=== PATIENT | male | born 1955 | race African-American/Black ===

== ENCOUNTER 2016-06-10 10:18 | Emergency (ER) | payer SELFPAY ==
[~2016-06-10] VITALS: Ht 188 cm; Wt 70.0 kg
[~2016-06-10 10:18] MED LIST: Z.0.NO CURRENT MEDS
[2016-06-10 10:25] VITALS: BP 141/81; PULSE 85; RESP 17; TEMP 98.4; O2SAT 95
[2016-06-10] MEDS ORDERED: SODIUM CHLORIDE 0.9% FLUSH 10 ML FLUSH IVF PRN (11:15)
--- NOTE | 2016-06-10 11:23 | PD ---
HPI Chief Complaint: Chest Pain Time Seen by Provider: 10:40 Travel History International Travel<30 days: No Contact w/Intl Traveler<30days: No Traveled to known affect area: No History of Present Illness HPI This patient complains of chest pain. He has a sharp stabbing pleuritic pain in both right and left upper chest. Reproducible with a deep breath. He also complains of some dyspnea on exertion. No productive cough or fever. He has no cardiac disease. He is a smoker. Symptoms severity is moderate. Duration 3 days. No alleviating factors. PFSH Past Medical History Diminished Hearing: No Respiratory: Yes (PT STATES "A SPOT ON LUNG WAS SEEN WHILE INCARCERATED"-NOT FOLLOWED UP) ?: Not Social History Alcohol Use: No Tobacco Use: Yes (one pack per day) Substance Use: No Allergies-Medications (Allergen,Severity, Reaction): Coded Allergies: No Known Allergies (Verified , 06/10/16) Reported Meds & Prescriptions Reported Meds & Active Scripts Active No Active Prescriptions or Reported Medications Review of Systems General / Constitutional: No: Fever Eyes: No: Visual changes HENT: No: Headaches Cardiovascular: Positive: Chest Pain or Discomfort Respiratory: Positive: Shortness of Breath Gastrointestinal: No: Abdominal Pain Genitourinary: No: Dysuria Musculoskeletal: No: Pain Skin: No Rash Neurologic: No: Weakness Psychiatric: No: Depression Endocrine: No: Polydipsia Hematologic/Lymphatic: No: Easy Bruising Physical Exam Narrative GENERAL: Well-nourished, well-developed patient with pleuritic pain. SKIN: Warm and dry. HEAD: Atraumatic. Normocephalic. EYES: Pupils equal and round. No scleral icterus. No injection or drainage. ENT: No nasal bleeding or discharge. Mucous membranes pink and moist. NECK: Trachea midline. No JVD. CARDIOVASCULAR: Regular rate and rhythm. No murmur appreciated. RESPIRATORY: No accessory muscle use. Clear to auscultation. Breath sounds equal bilaterally. GASTROINTESTINAL: Abdomen soft, non-tender, nondistended. Hepatic and splenic margins not palpable. MUSCULOSKELETAL: No obvious deformities. No clubbing. No cyanosis. No edema. Has some reproduce or chest tenderness diffusely NEUROLOGICAL: Awake and alert. No obvious cranial nerve deficits. Motor grossly within normal limits. Normal speech. PSYCHIATRIC: Appropriate mood and affect; insight and judgment normal. Data Data Last Documented VS Vital Signs Date Time Temp Pulse Resp B/P Pulse Ox O2 Delivery O2 Flow Rate FiO2 06/10/16 13:23 66 18 139/65 100 06/10/16 12:15 Room Air 06/10/16 10:25 98.4 Orders Electrocardiogram (06/10/16 ) Complete Blood Count With Diff (06/10/16 11:06) Basic Metabolic Panel (Bmp) (06/10/16 11:06) D-Dimer (06/10/16 11:06) Act Partial Throm Time (Ptt) (06/10/16 11:06) Prothrombin Time / Inr (Pt) (06/10/16 11:06) Iv Access Insert/Monitor (06/10/16 11:06) Ecg Monitoring (06/10/16 11:06) Oximetry (06/10/16 11:06) Chest, Single Ap (06/10/16 11:06) Sodium Chloride 0.9% Flush (Ns Flush) (06/10/16 11:15) Labs Laboratory Tests Test 06/10/16 10:30 White Blood Count 5.0 TH/MM3 Red Blood Count 5.50 MIL/MM3 Hemoglobin 14.1 GM/DL Hematocrit 44.1 % Mean Corpuscular Volume 80.1 FL Mean Corpuscular Hemoglobin 25.6 PG Mean Corpuscular Hemoglobin 32.0 % Concent Red Cell Distribution Width 16.2 % Platelet Count 177 TH/MM3 Mean Platelet Volume 9.9 FL Neutrophils (%) (Auto) 74.7 % Lymphocytes (%) (Auto) 13.1 % Monocytes (%) (Auto) 9.7 % Eosinophils (%) (Auto) 1.6 % Basophils (%) (Auto) 0.9 % Neutrophils # (Auto) 3.7 TH/MM3 Lymphocytes # (Auto) 0.7 TH/MM3 Monocytes # (Auto) 0.5 TH/MM3 Eosinophils # (Auto) 0.1 TH/MM3 Basophils # (Auto) 0.0 TH/MM3 CBC Comment DIFF FINAL Differential Comment Prothrombin Time 11.4 SEC Prothromb Time International 1.0 RATIO Ratio Activated Partial 28.5 SEC Thromboplast Time D-Dimer Quantitative (PE/DVT) 0.29 MG/L FEU Sodium Level 140 MEQ/L Potassium Level 3.8 MEQ/L Chloride Level 101 MEQ/L Carbon Dioxide Level 26.6 MEQ/L Anion Gap 12 MEQ/L Blood Urea Nitrogen 10 MG/DL Creatinine 0.98 MG/DL Estimat Glomerular Filtration 95 ML/MIN Rate Random Glucose 57 MG/DL Calcium Level 8.6 MG/DL [facility] Medical Decision Making Medical Screen Exam Complete: Yes Emergency Medical Condition: Yes Medical Record Reviewed: Yes Differential Diagnosis Differential diagnosis includes FL, angina, pericarditis, pleurisy, GERD, PE Narrative Course I have reviewed the patient's electronic medical record. Patient was seen here last in 2010 and had a negative treadmill test in the chest pain center Patient's presentation is concerning for PE or pleurisy IV placed CBC is normal Metabolic profile is normal Coagulation studies are normal D-dimer is 0.29, ruling out PE in this low risk patient I reviewed his chest x-ray which shows some COPD-like changes with some atelectasis/chronic scar tissue like findings. I reviewed his EKG which shows sinus rhythm but no ST elevation Extended cardiac monitoring reveals sinus rhythm without ectopy On recheck he is doing well. He is a lifelong smoker and likely has some degree of COPD I prescribed him an albuterol inhaler to use as needed but he should get a primary care physician and work on cigarette cessation Diagnosis Primary Impression: Pleuritic chest pain Additional Instructions: The patient was advised to follow up with their physician and return if they worsen. Stop smoking Med/Other Pt SpecificInfo: Prescription(s) given Scripts No Active Prescriptions or Reported Meds Disposition: 01 DISCHARGE HOME Condition: Stable Kimani Acuña MD Jun 10, 2016 11:23
[2016-06-10 11:34] LABS: AUTOMATED NEUTROPHIL # 3.7 TH/MM3 (1.8-7.7); BASOPHIL % 0.9 % (0.0-2.0); EOSINOPHIL # 0.1 TH/MM3 (0-0.4); EOSINOPHIL % 1.6 % (0.0-4.0); HEMATOCRIT 44.1 % (39.0-51.0); HEMO FLAGS DIFF FINAL; LYMPH % 13.1 % (9.0-44.0); LYMPHOCYTE # 0.7 TH/MM3 (1.0-4.8); MEAN CELL VOLUME 80.1 FL (80.0-100.0); MEAN CORPUSCULAR HEMOGLOBIN 25.6 PG (27.0-34.0); MONO % 9.7 % (0.0-8.0); NEUT % 74.7 % (16.0-70.0); PLATELET COUNT 177 TH/MM3 (150-450); RED CELL DISTRIBUTION WIDTH 16.2 % (11.6-17.2)
[2016-06-10 11:43] LABS: APTT (PATIENT) 28.5 SEC (24.3-30.1); PROTHROMBIN TIME - PATIENT 11.4 SEC (9.8-11.6)
[2016-06-10 11:50] LABS: BICARBONATE 26.6 MEQ/L (21.0-32.0); POTASSIUM 3.8 MEQ/L (3.5-5.1)
[2016-06-10 12:15] VITALS: BP 141/81; PULSE 75; PULSE 88; RESP 16; RESP 18; O2SAT 100
--- NOTE | 2016-06-10 12:16 | RADRPT ---
EXAM DATE/TIME: 06/10/2016 11:23 [facility] COMPARISON: No previous studies available for comparison. INDICATIONS : Chest Pain. MEDICAL HISTORY : None. SURGICAL HISTORY : None. ENCOUNTER: Initial ACUITY: 3 days PAIN SCORE: 3/10 LOCATION: Left chest FINDINGS: A single view of the chest demonstrates a bilateral pleural-based calcifications laterally in the mid chest. Subjacent pleural-parenchymal scarring and airspace disease. Lungs are hyperinflated with fla ttening of the hemidiaphragms. Heart size is normal. Osseous structures are intact. CONCLUSION: 1. Hyperinflation with flattening of both hemidiaphragms characteristic of some degree of COPD. 2. Chronic appearing pleural calcifications laterally in the mid chest bilaterally with subjacent sca rring/airspace disease. Juan Jc MD on June 10, 2016 at 12:12 Board Certified Radiologist. This report was verified electronically.
[2016-06-10 13:23] VITALS: BP 139/65
[2016-06-10] MEDS ORDERED: VENTAER INH (13:36)
--- NOTE | 2016-06-11 16:48 | EKG ---
Date Performed: 06/10/2016 Time Performed: 10:31:40 PTAGE: 61 years EKG: Sinus rhythm SEPTAL MYOCARDIAL INFARCTION ABNORMAL ECG Compared to prior tracing no significant change PREVIOUS TRACING : 07/11/2010 12.36 DOCTOR: Ren Sebastian Interpretating Date/Time 06/11/2016 16:46:36
== END 2016-06-10 14:14 | disposition home or self-care (01) ==
LOC: NEPE 10:18
DX: R07.81 Pleurodynia (principal); F17.210 Nicotine dependence, cigarettes, uncomplicated
CPT/HCPCS: 71010; 80048; 85025; 85379; 85610; 85730; 93005

== ENCOUNTER 2017-06-06 12:20 | Emergency (ER) | payer SELFPAY ==
[~2017-06-06 12:20] MED LIST changes: +VENTAER INH; -Z.0.NO CURRENT MEDS
[2017-06-06 13:10] VITALS: BP 127/72; PULSE 93; RESP 18; TEMP 97.8; O2SAT 97
--- NOTE | 2017-06-06 14:08 | RADRPT ---
EXAM DATE/TIME: 06/06/2017 13:55 [facility] COMPARISON: CHEST SINGLE AP, June 10, 2016, 11:23. INDICATIONS : Cough and shortness of breath. MEDICAL HISTORY : None. SURGICAL HISTORY : None. ENCOUNTER: Initial ACUITY: 1 week PAIN SCORE: 8/10 LOCATION: Bilateral chest FINDINGS: PA and lateral views of the chest were obtained and again demonstrate hyperinflation and chronic scar ring with bullous change in both lungs. There are patchy areas of opacity again noted in the mid lung s left greater than right with calcified pleural plaques again noted. No definite acute infiltrate or effusion is present. The heart size remains within normal limits. The bony thorax is intact. CONCLUSION: 1. Underlying emphysema and chronic scarring with bullous change. 2. Abnormal areas of opacity are again noted in both mid lungs with adjacent calcified pleural plaque s. This is not significantly change. 3. No definite acute infiltrate is identified. Enoc Boudreaux MD on June 06, 2017 at 14:03 Board Certified Radiologist. This report was verified electronically.
[2017-06-06 14:53] LABS: AUTOMATED NEUTROPHIL # 4.6 TH/MM3 (1.8-7.7); BASOPHIL # 0.1 TH/MM3 (0-0.2); EOSINOPHIL # 0.1 TH/MM3 (0-0.4); HEMATOCRIT 46.6 % (39.0-51.0); LYMPH % 19.7 % (9.0-44.0); LYMPHOCYTE # 1.4 TH/MM3 (1.0-4.8); MEAN CELL VOLUME 80.2 FL (80.0-100.0); MEAN CORPUSCULAR HEMOGLOBIN 25.7 PG (27.0-34.0); MEAN CORPUSCULAR HGB CONC 32.1 % (32.0-36.0); MONO % 12.8 % (0.0-8.0); MONOCYTE # 0.9 TH/MM3 (0-0.9); NEUT % 65.5 % (16.0-70.0); PLATELET COUNT 244 TH/MM3 (150-450); RED BLOOD COUNT 5.82 MIL/MM3 (4.50-5.90); RED CELL DISTRIBUTION WIDTH 15.3 % (11.6-17.2); WHITE BLOOD COUNT 7.1 TH/MM3 (4.0-11.0)
[2017-06-06 15:05] LABS: ALBUMIN 3.6 GM/DL (3.4-5.0); ALT (GPT) 19 U/L (12-78); AST (GOT) 21 U/L (15-37); BICARBONATE 32.3 MEQ/L (21.0-32.0); BLOOD UREA NITROGEN 11 MG/DL (7-18); CALCIUM 8.7 MG/DL (8.5-10.1); CHLORIDE 104 MEQ/L (98-107); CREATININE 1.14 MG/DL (0.60-1.30); GLOMERULAR FILTRATION RATE 79 ML/MIN (>89); GLUCOSE,RANDOM 128 MG/DL (74-106); SODIUM (NA) 141 MEQ/L (136-145)
[2017-06-06 15:08] LABS: ALKALINE PHOSPHATASE 66 U/L (45-117); TOTAL BILIRUBIN ADULT 0.6 MG/DL (0.2-1.0); TOTAL PROTEIN 7.7 GM/DL (6.4-8.2)
--- NOTE | 2017-06-06 15:18 | PD ---
HPI Chief Complaint: Cold / Flu Symptoms Time Seen by Provider: 15:15 Travel History International Travel<30 days: No Contact w/Intl Traveler<30days: No Traveled to known affect area: No History of Present Illness HPI 62-year-old male presents to the emergency department with complaint of productive cough, chest congestion, shortness of breath 1 week. Reports subjective fever and chills. Says his fever and chills are mostly at night. Reports body aches. Denies hemoptysis. Reports tobacco use. Denies wheezing. Denies chest pain. Denies history of DVT/PE. Denies recent surgery or travel. Has tried taking NyQuil for symptom management. Symptoms are mild to moderate in severity. No known aggravating or relieving factors. No primary care provider. Denies significant past medical history. No known allergies. Has no other medical complaints. No other modifying factors or associated signs and symptoms. PFSH Past Medical History Diminished Hearing: No Respiratory: Yes (PT STATES "A SPOT ON LUNG WAS SEEN WHILE INCARCERATED"-NOT FOLLOWED UP) Social History Alcohol Use: No Tobacco Use: Yes (one pack per day) Substance Use: No Allergies-Medications (Allergen,Severity, Reaction): Coded Allergies: No Known Allergies (Verified , 06/10/16) Reported Meds & Prescriptions Reported Meds & Active Scripts Active Azithromycin 500 Mg Tab 500 Mg PO DAILY Deltasone (Prednisone) 20 Mg Tab 40 Mg PO DAILY 4 Days start 06/07/2017 Ventolin Hfa 18 GM Inh (Albuterol Sulfate) 90 Mcg/Act Aer 2 Puff INH Q4-6H PRN Tessalon Perles (Benzonatate) 100 Mg Cap 100 Mg PO TID PRN 3 Days Ventolin Hfa 18 GM Inh (Albuterol Sulfate) 90 Mcg/Act Aer 2 Puff INH Q4-6H PRN Review of Systems Except as stated in HPI: all other systems reviewed are Neg Physical Exam Narrative GENERAL: Well-nourished, well-developed black male patient, in no acute distress ; afebrile, nontoxic-appearing SKIN: Warm and dry. No rash. HEAD: Atraumatic. Normocephalic. EYES: Pupils equal and round. No scleral icterus. No injection or drainage. ENT: Mucosa pink and moist. No erythema or exudates. No uvular edema. No uvular , palatal, or tonsillar deviation. Airway patent. EARS: Bilateral pinnae and external canals appear within normal limits. Bilateral tympanic membranes without erythema, dullness or perforation. NECK: Trachea midline. No lymphadenopathy. CARDIOVASCULAR: Regular rate and rhythm. No murmur appreciated. RESPIRATORY: No accessory muscle use. Clear to auscultation and decreased in bilateral bases. Breath sounds equal bilaterally. No retractions or tachypnea. GASTROINTESTINAL: Abdomen soft, non-tender, nondistended. Hepatic and splenic margins not palpable. Bowel sounds are active 4 quadrants. MUSCULOSKELETAL: No obvious deformities. No clubbing. No cyanosis. No edema. NEUROLOGICAL: Awake and alert. Oriented 3. No obvious cranial nerve deficits. Motor grossly within normal limits. Normal speech. Moves all extremities. 5/5 strength to all extremities. PSYCHIATRIC: Appropriate mood and affect; insight and judgment normal. Data Data Last Documented VS Vital Signs Date Time Temp Pulse Resp B/P (MAP) Pulse Ox O2 Delivery O2 Flow Rate FiO2 06/06/17 16:28 75 16 98 06/06/17 13:10 97.8 127/72 (90) Orders Orders Complete Blood Count With Diff (06/06/17 13:12) Comprehensive Metabolic Panel (06/06/17 13:12) Chest, Pa & Lat (06/06/17 13:12) Influenzae A/B Antigen (06/06/17 13:12) Prednisone (Deltasone) (06/06/17 15:45) Albuterol Neb (Albuterol Neb) (06/06/17 15:45) Ed Discharge Order (06/06/17 16:25) Labs Laboratory Tests Test 06/06/17 13:23 White Blood Count 7.1 TH/MM3 Red Blood Count 5.82 MIL/MM3 Hemoglobin 15.0 GM/DL Hematocrit 46.6 % Mean Corpuscular Volume 80.2 FL Mean Corpuscular Hemoglobin 25.7 PG Mean Corpuscular Hemoglobin Concent 32.1 % Red Cell Distribution Width 15.3 % Platelet Count 244 TH/MM3 Mean Platelet Volume 10.0 FL Neutrophils (%) (Auto) 65.5 % Lymphocytes (%) (Auto) 19.7 % Monocytes (%) (Auto) 12.8 % Eosinophils (%) (Auto) 1.0 % Basophils (%) (Auto) 1.0 % Neutrophils # (Auto) 4.6 TH/MM3 Lymphocytes # (Auto) 1.4 TH/MM3 Monocytes # (Auto) 0.9 TH/MM3 Eosinophils # (Auto) 0.1 TH/MM3 Basophils # (Auto) 0.1 TH/MM3 CBC Comment DIFF FINAL Differential Comment Blood Urea Nitrogen 11 MG/DL Creatinine 1.14 MG/DL Random Glucose 128 MG/DL Total Protein 7.7 GM/DL Albumin 3.6 GM/DL Calcium Level 8.7 MG/DL Alkaline Phosphatase 66 U/L Aspartate Amino Transf (AST/SGOT) 21 U/L Alanine Aminotransferase (ALT/SGPT) 19 U/L Total Bilirubin 0.6 MG/DL Sodium Level 141 MEQ/L Potassium Level 3.8 MEQ/L Chloride Level 104 MEQ/L Carbon Dioxide Level 32.3 MEQ/L Anion Gap 5 MEQ/L Estimat Glomerular Filtration Rate 79 ML/MIN [facility] Medical Decision Making Medical Screen Exam Complete: Yes Emergency Medical Condition: Yes Medical Record Reviewed: Yes Differential Diagnosis Bronchitis, COPD, influenza, pneumonia Narrative Course 62-year-old male with cold/flu symptoms. CBC, CMP, influenza, chest x-ray ordered in triage. 1516: CBC, CMP unremarkable. Influenza negative. Chest x-ray concluded: Underlying emphysema and chronic scarring with bullous change; 2. Abnormal areas of opacity are again noted in both mid lungs with adjacent calcified pleural plaques. This is not significantly change; 3. No definite acute infiltrate is identified. Discussed chest x-ray findings with the patient. Instructed patient to follow-up with overnight houseperson in regards to underlying emphysema. Lungs are clear and equal throughout with decreased breath sounds in bilateral bases. Albuterol nebulized and prednisone ordered. After nebulizer treatment the patient reports improvement in symptoms. She denies chest tightness or shortness of breath. Lungs are clear and equal throughout with improved lung sounds in bilateral bases. Azithromycin, prednisone, Ventolin inhaler, Tessalon Perles prescribed for home. Instructed patient to follow-up with overnight houseperson. Instructed patient to follow up with primary care provider. Patient verbalizes understanding and agreement with treatment plan. Patient is medically cleared and stable for discharge. Discussed reasons to return to the emergency department. Patient agrees with treatment plan. The patients vital signs are stable and the patient is stable for outpatient follow-up and treatment. Patient discharged home, stable and in no acute distress. Diagnosis Primary Impression: Acute bronchitis Qualified Codes: J20.9 - Acute bronchitis, unspecified Referrals: [facility] Primary Care Physician Autobody Technician Patient Instructions: Acute Bronchitis (ED), General Instructions Departure Forms: Tests/Procedures, Work Release Enter return to work date: Jun 08, 2017 Additional Instructions: Use Albuterol inhaler as prescribed Take oral steroids as prescribed and complete full course Use Tessalon Perles as prescribed to decrease coughing spasms Ezke-[id number] decongestants or antihistamines as directed and as needed for symptom management Your cough can last 4-6 weeks Drink plenty of fluids to prevent dehydration Use hot air humidifier to decrease cough exacerbation Turn off ceiling fans and sleep with head of bed elevated Avoid triggers such as second hand smoke, dust, known allergens Follow-up with your primary care provider Return to the emergency department immediately with worsening of symptoms Med/Other Pt SpecificInfo: Prescription(s) given Scripts Azithromycin (Azithromycin) 500 Mg Tab 500 MG PO DAILY for Infection, #5 TAB 0 Refills Prov: Earlene Levin 06/06/17 Prednisone (Deltasone) 20 Mg Tab 40 MG PO DAILY for 4 Days, #8 TAB 0 Refills start 06/07/2017 Prov: Earlene Levin 06/06/17 Albuterol 18 GM Inh (Ventolin Hfa 18 GM Inh) 90 Mcg/Act Aer 2 PUFF INH Q4-6H Y for SOB/WHEEZING, #1 INHALER 0 Refills Prov: Earlene Levin 06/06/17 Benzonatate (Tessalon Perles) 100 Mg Cap 100 MG PO TID Y for COUGH for 3 Days, CAP 0 Refills Prov: Earlene Levin 06/06/17 Disposition: 01 DISCHARGE HOME Condition: Stable Earlene Levin Jun 06, 2017 15:18
[2017-06-06] MEDS ORDERED: predniSONE 20 MG TAB PO ONE (15:45)
[2017-06-06] MEDS ORDERED: RESP: ALBUTEROL 2.5 MG/3 ML NEB (SCH) INH ONE (15:45)
[2017-06-06] MEDS ORDERED: VENTAER INH (16:22)
[2017-06-06] MEDS ORDERED: BENZ100 PO (16:22)
[2017-06-06] MEDS ORDERED: PRED-503 PO (16:22)
[2017-06-06] MEDS ORDERED: AZIT500T2 PO (16:25)
== END 2017-06-06 16:40 | disposition home or self-care (01) ==
LOC: NED 12:20 → NEPD 16:40
DX: J20.9 Acute bronchitis, unspecified (principal); F17.200 Nicotine dependence, unspecified, uncomplicated
CPT/HCPCS: 71046; 80053; 85025; 87804; 94664; 99284; J7512; J7613

== ENCOUNTER 2017-09-26 06:45 | Observation (INO) ==
--- NOTE | 2017-09-26 07:23 | ED ---
HPI General Chief complaint: Chest Pain Stated complaint: chest pain/diff breathing Time Seen by Provider: 09/26/17 07:08 History of Present Illness HPI narrative: Patient is a 62-year-old male presents emergency department for evaluation of chest pain sharp in the middle of his chest sometimes under his left nipple. Patient is a cigarette smoker, denies a history of high blood pressure high cholesterol or diabetes, no history of heart disease lung disease and himself. States he has not had a checkup in many years however. On review of systems the patient states he does have some shortness of breath no nausea no vomiting no dizziness, he states the pain does get worse with exertion. Never had pain like this in the past. It is not associated with any food intake. This episode started last night about 1999 Onset (ago): hour(s) Location: chest Radiation: non-radiation Severity scale (1-10): 9 Quality: sharp Related Data Home Medications Medication Instructions Recorded Confirmed No Known Home Medications 09/26/17 09/26/17 Allergies Allergy/AdvReac Type Severity Reaction Status Date / Time No Known Allergies Allergy Verified 09/26/17 06:51 Review of Systems Except as stated in HPI: all other systems reviewed are negative PMFSH Medical History Medical History Patient denies medical problems (Acute) Social History Social History Substance History: Past History Smoking Status: Heavy tobacco smoker Tobacco Type: Cigarettes How Often Do You Have a Drink Containing Alcohol: 2 to 3 times a week Recent Travel in [facility] within the Last 8 Weeks: No Recent Out of Country Travel within the Last 8 Weeks: No Substance Abuse Detail Marijuana: Substance Use Status: Sustained Remission Immunization History Tetanus Immunization: Never Vaccinated Hx Influenza Vaccine This Season: No Course Initial Documented Vital Signs Temperature 98.3 F 09/26/17 06:47 Pulse Rate 92 H 09/26/17 06:47 Respiratory Rate 24 09/26/17 06:47 Blood Pressure 137/78 09/26/17 06:47 Pulse Oximetry 93 L 09/26/17 06:47 Last Documented Vital Signs Temperature 97.4 F L 09/26/17 14:10 Pulse Rate 80 09/26/17 14:10 Respiratory Rate 16 09/26/17 14:10 Blood Pressure 119/71 09/26/17 14:10 Pulse Oximetry 95 09/26/17 14:10 Medical Decision Making [facility] Narrative Medical decision making narrative: Patient room to the emergency department, chest pain has some fairly atypical signs to it but does have some risk factors including smoking, has not had a checkup in many years. He also does state that the symptoms are worsened with exertion. Review of his records shows that he has been here at least twice in the past for this once in 2010 was admitted chest pain center and then one last year which she was diagnosed with pleuritic chest pain and sent home. Given his symptoms I think he would benefit from a chest pain center observation, discussed the other possibilities with him including reflux, Barajas's esophagus and discussed he needs to follow-up with the [facility] or GI doctor for further workup after he is excluded from cardiac etiology. Otherwise chest x-ray negative, EKG shows no signs of ischemia troponin negative. Aspirin nitroglycerin given, minimal relief of symptoms. Lab Data Result diagrams: 09/26/17 07:05 09/26/17 07:05 Lab Results 09/26/17 09/26/17 09/26/17 Range/Units 07:05 07:05 09:05 WBC 5.1 (4.0-11.0) th/mm3 RBC 5.45 (4.50-5.90) mil/mm3 Hgb 14.1 (13.0-17.0) gm/dL Hct 43.3 (39.0-51.0) % MCV 79.4 L (80.0-100.0) fL MCH 25.8 L (27.0-34.0) pg MCHC 32.5 (32.0-36.0) % RDW 14.4 (11.6-17.2) % Plt Count 190 (150-450) th/mm3 MPV 9.0 (7.0-11.0) fL Neut % (Auto) 54.8 (16.0-70.0) % Lymph % (Auto) 27.2 (9.0-44.0) % [place] % (Auto) 15.6 H (0.0-8.0) % Eos % (Auto) 0.9 (0.0-4.0) % Baso % (Auto) 1.5 (0.0-2.0) % Neut # (Auto) 2.8 (1.8-7.7) th/mm3 Lymph # (Auto) 1.4 (1.0-4.8) th/mm3 [place] # (Auto) 0.8 (0.0-0.9) th/mm3 Eos # (Auto) 0.0 (0.0-0.4) th/mm3 Baso # (Auto) 0.1 (0.0-0.2) th/mm3 WBC Differential . Differential Comment Auto diff final D-Dimer Quant (PE/DVT) 0.50 (0.00-0.50) mg/L FEU Sodium 139 (136-145) meq/L Potassium 4.0 (3.5-5.1) meq/L Chloride 101 (98-107) meq/L Carbon Dioxide 26.4 (21.0-32.0) meq/L Anion Gap 12 (5-15) meq/L BUN 14 (7-18) mg/dL Creatinine 1.06 (0.60-1.30) mg/dL Estimated GFR 86 L (>89) mL/min Random Glucose 76 (74-106) mg/dL Calcium 8.6 (8.5-10.1) mg/dL Total Bilirubin 0.8 (0.2-1.0) mg/dL AST 49 H (15-37) U/L ALT 28 (12-78) U/L Alkaline Phosphatase 72 (45-117) U/L Total Creatine Kinase 200 (39-308) U/L CK-MB (CK-2) 2.6 (0.5-3.6) ng/mL Troponin I Less than 0.02 L (0.02-0.05) ng/mL Total Protein 8.0 (6.4-8.2) g/dL Albumin 3.8 (3.4-5.0) g/dL Lipase 75 (73-393) U/L Imaging Data Radiologist's impression: Chest X-Ray 09/26/17 07:36 CONCLUSION: 1. Marked COPD. 2. Bihilar additional airspace process which appears chronic. Stable pleural plaquing laterally on the left. 3. No acute superimposed infiltrate. Myocardial Perfusion Scan Nuc Med 09/26/17 11:14 CONCLUSION: Negative examination. Discharge Plan Discharge Disposition Patient Disposition: 01 Discharge Home Discharge Condition Condition: Stable Discharge Order Discharge Orders: Discharge Order (Routine); Ordered 09/26/17 Ordered By: Jerald Layne Physicians Team ED Provider: Jarred Shepard Primary Care Provider: Primary Care Saba Montoya Attending Provider: Tristan Daniel Status ED Status: Left Department Discharge Information Discharge Date/Time: 09/26/17 12:45
[2017-09-26 07:57] LABS: Baso # (Auto) 0.1 th/mm3 (0.0-0.2); Baso % (Auto) 1.5 % (0.0-2.0); Eos % (Auto) 0.9 % (0.0-4.0); Hematocrit 43.3 % (39.0-51.0); Hemoglobin 14.1 gm/dL (13.0-17.0); Lymph # (Auto) 1.4 th/mm3 (1.0-4.8); Lymph % (Auto) 27.2 % (9.0-44.0); Mean Corpuscular HGB Conc 32.5 % (32.0-36.0); Mean Corpuscular Hemoglobin 25.8 pg (27.0-34.0); Mean Corpuscular Volume 79.4 fL (80.0-100.0); Mono # (Auto) 0.8 th/mm3 (0.0-0.9); Mono % (Auto) 15.6 % (0.0-8.0); Neut # (Auto) 2.8 th/mm3 (1.8-7.7); Neut % (Auto) 54.8 % (16.0-70.0); Platelet Count 190 th/mm3 (150-450); Red Blood Count 5.45 mil/mm3 (4.50-5.90); Red Cell Distribution Width 14.4 % (11.6-17.2); White Blood Count 5.1 th/mm3 (4.0-11.0)
[2017-09-26 08:19] LABS: Albumin 3.8 g/dL (3.4-5.0); Anion Gap 12 meq/L (5-15); Aspartate Aminotransferase 49 U/L (15-37); Blood Urea Nitrogen 14 mg/dL (7-18); Calcium 8.6 mg/dL (8.5-10.1); Carbon Dioxide 26.4 meq/L (21.0-32.0); Chloride 101 meq/L (98-107); Glomerular Filtration Rate 86 mL/min (>89); Glucose,Random 76 mg/dL (74-106); Lipase 75 U/L (73-393); Sodium 139 meq/L (136-145)
[2017-09-26 08:21] LABS: Alanine Aminotransferase 28 U/L (12-78)
--- NOTE | 2017-09-26 08:21 | XR ---
EXAM DATE: 09/26/2017 7:55 AM EDT AGE/SEX: 62 years / Male INDICATIONS: Chest pain. CLINICAL DATA: This is the patient's initial encounter. Patient reports that signs and symptoms have been present for 2 days and indicates a pain score of 6/10. MEDICAL/SURGICAL HISTORY: . Smoker. None. COMPARISON: [facility], CHEST PA & LAT, 06/06/2017. . FINDINGS: A single AP view of the chest demonstrates hyperinflation findings of significant emphysematous [place]in[place] es, particularly in the apices. Stable bihilar mixed interstitial and airspace process with pleural-b ased calcification laterally on the left. Flattening of the hemidiaphragms characteristic of COPD wit h pleural parenchymal scarring. CONCLUSION: 1. Marked COPD. 2. Bihilar additional airspace process which appears chronic. Stable pleural plaquing laterally on t he left. 3. No acute superimposed infiltrate. Electronically signed by: Juan Jc MD 09/26/2017 8:19 AM EDT
[2017-09-26 08:24] LABS: Alkaline Phosphatase 72 U/L (45-117); Creatine Kinase 200 U/L (39-308)
[2017-09-26 08:37] LABS: Creatine Kinase MB 2.6 ng/mL (0.5-3.6)
[2017-09-26 10:08] VITALS: RESP 16
[2017-09-26] MEDS ORDERED: Acetaminophen 500 MG Tablet PO PRN (10:38)
--- NOTE | 2017-09-26 10:46 | P.HPCA ---
History of Present Illness Primary Care Physician: No Primary Care Physician Chief Complaint: Chest pain History of Present Illness: This is a 62-year-old male history of tobacco abuse and likely COPD although states he was never told he has it but complains of developing a central chest discomfort last evening around 8:00 while lying at home whenever he would take in a deep breath. It would occur would be a sharp pain in last for a few seconds. Would make him short of breath. Found nothing else to bring on this chest discomfort patient states he rides a bicycle to work provides a very slow and it will not usually produce chest pain but states he gets short of breath easily and that has been going on for quite some time. States he has had a stress test in the past and upon reviewing records he had a stress test 2010 that was nonischemic. Currently denies chest discomfort. Denies recent illness. Denies recent travel. Patient has smoked about one third pack of cigarettes daily for probably 42 years. He drinks approximately 12 beers on weekends. Denies recent illicit drug use. Cannot recall family history of CAD. - Diagnosis (1) Chest pain (2) Tobacco abuse Inpatient Certification: I certify that the inpatient services were ordered in accordance with Medicare regulations governing the order. This includes certification that hospital inpatient services are reasonable and necessary and in the case of services not specified as inpatient-only under 42 CFR 419.22(n), that they are appropriately provided as inpatient services in accordance to with the 2-midnight benchmark under 43 CFR 412.3(e) Review of Systems General: Patient denies fevers, chills, and recent travel. HEENT: Patient denies headache, sore throat, difficulty swallowing. Cardiovascular: Has the chest discomfort as mentioned above. Denies sensation of heart beating rapidly or irregularly. No syncope. Denies diaphoresis. Respiratory: Developed chest pain last evening whenever he would take in a deep breath. He was short of breath. Denies coughing wheezing or hemoptysis but states he has had wheezing in the past. GI: Patient denies nausea, vomiting, diarrhea, abdominal pain, bloody stools. Musculoskeletal: Patient denies joint pain or edema. Denies calf pain or edema. Neurovascular: Patient denies numbness, tingling, weakness in extremities. Denies headache. Endocrine: Denies polyuria and polydipsia. Hematologic: Denies easy bruising. Skin: Denies rash or itching. PMFSH - History History Provided By: Patient - Medical History Medical History: Medical History (Last Updated 09/26/17 @ 07:08 by Mónica Allen) Patient denies medical problems (Acute) - Tobacco History Tobacco Use In Past 30 Days: Yes Smoking Status: Heavy tobacco smoker Tobacco Type: Cigarettes - Alcohol History How Often Do You Have a Drink Containing Alcohol: 2 to 3 times a week - Substance Use History Substance History: Past History - Substance Use Type Marijuana Status: Sustained Remission - Travel History Recent Travel in the [place] Within the Last 8 Weeks: No Recent Travel Out of the Country Within the Last 8 Weeks: No - Immunization History Tetanus Immunization: Never Vaccinated Hx Influenza Vaccine This Season: No Medications and Allergies Active Medications: Active Medications Acetaminophen (Tylenol) 500 mg PO Q6H PRN PRN Reason: pain scale 1-5 Hydrocodone Bitart/Acetaminophen ([place] 7.5/325) 1 tab PO Q6H PRN PRN Reason: pain scale 6-10 Albuterol (Duoneb Neb (Prn)) 1 ampul NEB Q4HR NEB PRN PRN Reason: SHORTNESS OF BREATH/WHEEZING Clonidine HCl (Catapres) 0.1 mg PO Q6H PRN PRN Reason: SBP >165 OR DBP > 110 Allergies Allergy/AdvReac Type Severity Reaction Status Date / Time No Known Allergies Allergy Verified 09/26/17 06:51 Home Medications Medication Instructions Recorded Confirmed Type No Known Home Medications 09/26/17 09/26/17 History Exam Vital signs: Vital Signs 09/26/17 06:47 09/26/17 07:41 09/26/17 10:07 Temperature 98.3 F Pulse Rate 92 H 73 Respiratory Rate 24 16 Blood Pressure 137/78 125/78 Pulse Oximetry 93 L 96 98 Intake & Output 09/25/17 09/26/17 09/26/17 18:59 06:59 18:59 Weight 66.678 kg 69.853 kg Narrative: GENERAL: This is a well-nourished, well-developed patient, in no apparent distress. Patient speaks in clear complete sentences. Patient is pleasant. HEENT: Head is atraumatic and normocephalic. Neck is supple without lymphadenopathy and trachea is midline. No JVD or carotid bruits. CARDIOVASCULAR: Regular rate and rhythm without murmurs, gallops, or rubs. RESPIRATORY: Mild wheezing and rhonchi in the bases. Breath sounds equal bilaterally. No rales. Chest wall is nontender. No use of accessory muscles. GASTROINTESTINAL: Abdomen is nontender, nondistended. Abdomen soft. No obvious pulsatile mass or bruit. No CVA tenderness. Strong femoral pulses bilaterally. Normal bowel sounds in all quadrants. MUSCULOSKELETAL: Patient is moving upper and lower extremities freely. No calf tenderness or edema, no Homans sign. Strong pulses in upper and lower extremities. NEUROLOGICAL: Patient is alert and oriented. Cranial nerves 2-12 are grossly intact. No focal deficits and speech is clear. SKIN: No rash and turgor is normal. Results 09/26/17 07:05 09/26/17 07:05 Cardiac Enzymes 09/26/17 Range/Units 07:05 AST 49 H (15-37) U/L CK-MB (CK-2) 2.6 (0.5-3.6) ng/mL Troponin I Less than 0.02 L (0.02-0.05) ng/mL CBC 09/26/17 Range/Units 07:05 WBC 5.1 (4.0-11.0) th/mm3 RBC 5.45 (4.50-5.90) mil/mm3 Hgb 14.1 (13.0-17.0) gm/dL Hct 43.3 (39.0-51.0) % Plt Count 190 (150-450) th/mm3 Neut # (Auto) 2.8 (1.8-7.7) th/mm3 Lymph # (Auto) 1.4 (1.0-4.8) th/mm3 [place] # (Auto) 0.8 (0.0-0.9) th/mm3 Eos # (Auto) 0.0 (0.0-0.4) th/mm3 Baso # (Auto) 0.1 (0.0-0.2) th/mm3 Comprehensive Metabolic Panel 09/26/17 Range/Units 07:05 Sodium 139 (136-145) meq/L Potassium 4.0 (3.5-5.1) meq/L Chloride 101 (98-107) meq/L Carbon Dioxide 26.4 (21.0-32.0) meq/L BUN 14 (7-18) mg/dL Creatinine 1.06 (0.60-1.30) mg/dL Calcium 8.6 (8.5-10.1) mg/dL AST 49 H (15-37) U/L ALT 28 (12-78) U/L Alkaline Phosphatase 72 (45-117) U/L Total Protein 8.0 (6.4-8.2) g/dL Albumin 3.8 (3.4-5.0) g/dL Intake and Output 09/25/17 09/26/17 09/26/17 22:59 06:59 14:59 Other: Weight 66.678 kg 69.853 kg Patient Weight 09/27/17 06:59 Weight 69.853 kg EKG interpretations - EKG EKG shows: sinus rhythm (Initial EKG is sinus rhythm with nonspecific lateral ST -T changes.) Caprini VTE Risk Assessment Caprini VTE Risk Assessment: Moderate/High Risk (score >= 2) Caprini Risk Assessment Model: Point Value = 1 Point Value = 2 Point Value = 3 Point Value = 5 Age 41-60 Minor surgery BMI > 25 kg/m2 Swollen legs Varicose veins or History of unexplained or recurrent spontaneous Oral contraceptives or hormone replacement Sepsis (< 1 month) Serious lung disease, including pneumonia (< 1 month) Abnormal pulmonary function Acute myocardial infarction Congestive heart failure (< 1 month) History of inflammatory bowel disease Medical patient at bed rest Age 61-74 Arthroscopic surgery Major open surgery (> 45 min) Laparoscopic surgery (> 45 min) Malignancy Confined to bed (> 72 hours) Immobilizing plaster cast Central venous access Age >= 75 History of VTE Family history of VTE Factor V Leiden Prothrombin [id number] Lupus anticoagulant Anticardiolipin antibodies Elevated serum homocysteine Heparin-induced thrombocytopenia Other congenital or acquired thrombophilia Stroke (< 1 month) Elective arthroplasty Hip, pelvis, or leg fracture Acute spinal cord injury (< 1 month) Prophylaxis Regimen: Total Risk Factor Score Risk Level Prophylaxis Regimen 0-1 Low Early ambulation 2 Moderate Order ONE of the following: *Sequential Compression Device (SCD) *Heparin 5000 units SQ BID 3-4 Higher Order ONE of the following medications: *Heparin 5000 units SQ TID *Enoxaparin/Lovenox 40 mg SQ daily (WT < 150 kg, CrCl > 30 mL/min) *Enoxaparin/Lovenox 30 mg SQ daily (WT < 150 kg, CrCl > 10-29 mL/min) *Enoxaparin/Lovenox 30 mg SQ BID (WT < 150 kg, CrCl > 30 mL/min) AND/OR *Sequential Compression Device (SCD) 5 or more Highest Order ONE of the following medications: *Heparin 5000 units SQ TID (Preferred with Epidurals) *Enoxaparin/Lovenox 40 mg SQ daily (WT < 150 kg, CrCl > 30 mL/min) *Enoxaparin/Lovenox 30 mg SQ daily (WT < 150 kg, CrCl > 10-29 mL/min) *Enoxaparin/Lovenox 30 mg SQ BID (WT < 150 kg, CrCl > 30 mL/min) AND *Sequential Compression Device (SCD) Assessment and Plan - Assessment (1) Chest pain Code(s): R07.9 - Chest pain, unspecified Status: Acute (2) Tobacco abuse Code(s): Z72.0 - Tobacco use Status: Acute - Plan * Chest pain: Patient will be seen by coconut cooker Dr. Tristan Daniel in the chest pain center. Patient will likely have stress testing but will need to rule out PE prior. If there is no PE and then the patient will have a's chemical stress test. Patient will be discharged home if the stress test is nonischemic with instructions to follow-up with PCP and to quit smoking. Return to ED for interval issues. * Tobacco abuse: Patient has been counseled on the importance of smoking cessation. Patient is stable at this time. He is agreeable to this plan.
[2017-09-26] MEDS ORDERED: Regadenoson Inj 0.4 MG/5 ML Syringe IV.PUSH ONE (13:04)
[2017-09-26 14:12] VITALS: BP 119/71; PULSE 80; TEMP 97.4; O2SAT 95
--- NOTE | 2017-09-26 14:16 | NM ---
EXAM DATE: 09/26/2017 2:06 PM EDT AGE/SEX: 62 years / Male INDICATIONS:Angina. . Left sided chest pain. CLINICAL DATA: This is the patient's initial encounter. Patient reports that signs and symptoms have been present for 1 day and indicates a pain score of 7/10. MEDICAL/SURGICAL HISTORY: None. None. COMPARISON: No prior exams available for comparison. DOSE: 8.5 mCi Tc 99m Myoview at rest 25.4 mCi [id number] at stress 0.4 mg Lexiscan STRESS SYMPTOMS: Dyspnea. EJECTION FRACTION: 68 % TECHNIQUE: The patient underwent pharmacologic stress with infusion of prescribed dose. Continuous ECG tracing was monitored during stress. Gated SPECT imaging was performed after stress and conventi onal SPECT imaging was performed at rest. The examination was performed on a SPECT/CT scanner, both attenuation and non-corrected datasets were reviewed. FINDINGS: Distribution: The maximum perfused segment at stress is in the septal wall. Perfusion Study: The pattern of perfusion at stress is within normal limits. Gated Study: There are intact wall motion and wall thickening without hypokinetic or dyskinetic segm ents. The ejection fraction is calculated at 68%. RISK CATEGORY: Low (<1% Annual Motality Rate) CONCLUSION: Negative examination. Electronically signed by: Bhaskar Rhoades MD 09/26/2017 2:15 PM EDT
--- NOTE | 2017-09-26 14:55 | TR ---
Date Performed: 09/26/2017 Time Performed: 13:12:29 DOCTOR: Tristan Daniel DRUG LIST: CLINICAL HISTORY: REASON FOR TEST: REASON FOR ENDING: OBSERVATION: CONCLUSION: COMMENTS: Lexiscan stress test was performed under standard four minute protocol. Radionuclide was injected one minute prior to ending the test. No electrocardiographic abormalities were present t o suggest ischemia. Nuclear imaging and interpretation are pending.
--- NOTE | 2017-09-26 17:47 | ECG ---
Date Performed: 09/26/2017 Time Performed: 07:10:24 PTAGE: 62 years EKG: Sinus rhythm POSSIBLE RIGHT ATRIAL ENLARGEMENT NONSPECIFIC T-WAVE ABNORMALITY BORDERLINE ECG PREVIOUS TRACING : 06/10/2016 10.31 Since the previous tracing, no significant change noted DOCTOR: Daryl Ferrara Interpretating Date/Time 09/26/2017 17:46:07
[2017-09-27] MEDS ORDERED: Aspirin 325 MG Tablet PO SCH (09:00)
== END 2017-09-26 17:34 | disposition home or self-care (01) ==
LOC: NEDA 06:45 → NEPFCDU 06:45 → NEPC 06:45 → NEDA 12:45 → NEPFCDU 14:16
PROVIDERS: ADMIT Internal Medicine Cardiovascular Disease; ATTEND Internal Medicine Cardiovascular Disease
DX: R06.02 Shortness of breath; R07.89 Other chest pain; J44.9 Chronic obstructive pulmonary disease, unspecified; F17.210 Nicotine dependence, cigarettes, uncomplicated